=== PATIENT | male | born 1970 | race African-American/Black ===

== ENCOUNTER 2017-05-11 18:28 | Observation (INO) | payer BC ==
[~2017-05-11] VITALS: Ht 172.7 cm; Wt 80.5 kg
[2017-05-12 01:29] LABS: HEMATOCRIT 48.3 % (38.0-50.0); MCH 27.8 PG (29.0-34.0); MCHC 33.5 G/DL (30.0-36.0); MEAN PLAT.VOLUME 11.7 uM^3 (9.0-12.4); PLATELET COUNT 168 K/uL (156-360); RBC DIS.WIDTH-SD 38.7 % (39-53); RED BLOOD COUNT 5.82 M/uL (4.00-5.50); WHITE BLOOD COUNT 9.5 K/uL (4.1-10.2)
[2017-05-12 01:37] LABS: CHLORIDE 101 mEq/L (99-109); POTASSIUM 4.4 mEq/L (3.7-5.4); SODIUM 138 mEq/L (136-147)
[2017-05-12 01:39] LABS: GLUCOSE 222 mg/dL (70-99)
[2017-05-12 01:40] LABS: ANION GAP 11 MEQ/L (2-14)
[2017-05-12 01:43] LABS: GFR ESTIMATE (CALCULATED) > 59 mL/min/
[2017-05-12 01:44] LABS: UREA NITROGEN (BUN) 14 mg/dL (9-23)
[2017-05-12 01:48] LABS: TROP-I INTERPRETATION NEGATIVE; TROPONIN-I < 0.01 ng/mL (0.0-0.30)
[2017-05-12] MEDS ORDERED: GLUCOPHAGE XR750 MG PO (04:08)
[2017-05-12] MEDS ORDERED: LANTUS 3 M100 UNITS1 SC (04:10)
[2017-05-12] MEDS ORDERED: LISINOPRIL2.5 MG PO (04:11)
[2017-05-12 05:13] LABS: IRON 59 MCG/DL (35-150)
[2017-05-12 05:21] VITALS: BP 112/64
[2017-05-12 07:14] LABS: TROP-I INTERPRETATION NEGATIVE; TROPONIN-I < 0.01 ng/mL (0.0-0.30)
[2017-05-12 07:25] VITALS: BP 122/89
[2017-05-12 07:51] LABS: FERRITIN 56 NG/ML (22-322)
[2017-05-12 09:21] LABS: POINT-OF-CARE METER ID UU13113700
[2017-05-12 11:38] VITALS: BP 124/77
[2017-05-12 14:41] LABS: TROP-I INTERPRETATION NEGATIVE; TROPONIN-I < 0.01 ng/mL (0.0-0.30)
[2017-05-12 15:17] VITALS: BP 119/85
[2017-05-12 17:35] LABS: POINT-OF-CARE METER ID UU13113831
[2017-05-12 19:47] VITALS: BP 127/69
[2017-05-12 22:04] LABS: POINT-OF-CARE METER ID UU13113700
[2017-05-12 23:43] VITALS: BP 118/69
[2017-05-13 04:30] VITALS: BP 119/76
[2017-05-13 05:28] LABS: HEMATOCRIT 44.2 % (38.0-50.0); MCH 27.1 PG (29.0-34.0); MCHC 32.8 G/DL (30.0-36.0); MCV 82.6 FL (86-99); MEAN PLAT.VOLUME 11.5 uM^3 (9.0-12.4); PLATELET COUNT 141 K/uL (156-360); RBC DIS.WIDTH-CV 12.8 % (11.8-14.6); RBC DIS.WIDTH-SD 38.5 % (39-53); RED BLOOD COUNT 5.35 M/uL (4.00-5.50); WHITE BLOOD COUNT 5.4 K/uL (4.1-10.2)
[2017-05-13 05:57] LABS: ANION GAP 6 MEQ/L (2-14); CHLORIDE 104 MEQ/L (99-109); GFR ESTIMATE (CALCULATED) > 59 mL/min/; GLUCOSE 181 mg/dL (70-99); POTASSIUM 4.1 MEQ/L (3.7-5.4); SAMPLE HEMOLYSIS CHECK 0; SAMPLE ICTERIC CHECK 0; SAMPLE LIPEMIA CHECK 0; SODIUM 138 MEQ/L (136-147); UREA NITROGEN (BUN) 15 mg/dL (9-23)
[2017-05-13 07:50] VITALS: BP 141/81
[2017-05-13 08:15] LABS: POINT-OF-CARE METER ID UU13113700
[2017-05-13 11:09] VITALS: BP 148/62
[2017-05-13] MEDS ORDERED: ANTIVERT25 MG PO (11:30)
[2017-05-13] MEDS ORDERED: PREDNISONE10 MG PO (11:30)
[2017-05-13 12:55] LABS: POINT-OF-CARE METER ID UU13113831
== END 2017-05-13 14:38 | disposition home or self-care (01) ==
LOC: EME 18:28 → EDOF 05-12 03:39 → 5WEST 05-12 03:39 → ENRESERV 05-12 03:41 → 5WEST 05-12 05:09
PROVIDERS: Emergency Medicine; Hospitalist; Physician Assistant
DX: R42 Dizziness and giddiness (principal); E11.65 Type 2 diabetes mellitus with hyperglycemia; Z79.4 Long term (current) use of insulin
CPT/HCPCS: 70450; 70544; 70551; 80048; 82728; 82948; 83540; 84466; 84484; 85027; 93005; 99281; 99285; G0378; J1650; J1815; J2060; J7030; J7512